=== PATIENT | female | born 1960 | race Caucasian/White ===

== ENCOUNTER 2021-06-08 11:31 | Day surgery (SDC) | payer BC ==
[~2021-06-08 11:31] MED LIST: Metoclopramide 10 MG/2 ML SDV IV PRN; Sodium Chloride 0.9% 1,000 ML IV SCH
[2021-06-08] MEDS ORDERED: Propofol 1,000 MG/100 ML SDV ONE (13:00)
--- NOTE | 2021-06-09 09:11 | OR ---
DATE OF OPERATION: 06/08/2021 SURGEON: Bassam Brady MD PREOPERATIVE DIAGNOSIS: Positive Cologuard test. POSTOPERATIVE DIAGNOSIS: Positive Cologuard test. PROCEDURE: Incomplete colonoscopy. ANESTHESIA: MAC. ESTIMATED BLOOD LOSS: None. COMPLICATIONS: None. INDICATION FOR THE PROCEDURE: The patient is a 60-year-old female, here today for colonoscopy. Last scope was 10 years ago, was normal per the patient. Denies any change in bowel habits. She did have a positive Cologuard test. She is here today for colonoscopy. DESCRIPTION OF PROCEDURE: Informed consent was obtained from the patient. The patient was taken to the operating room, placed on table in the left lateral decubitus position. Monitored anesthesia care was administered. Digital rectal exam was performed and was normal. Colonoscope was then advanced through the anus, did reach the sigmoid colon, unable to negotiate outside of the sigmoid due to a tortuous colon. The patient repositioned on her back, still unable to negotiate past the sigmoid. Scope was exchanged for a pediatric colonoscope with the same result, unable to negotiate through the sigmoid on her left lateral side, then repositioned to supine position, still unable to negotiate past due to a tortuous sigmoid colon. Colonoscope was then withdrawn. FINDINGS: Tortuous sigmoid colon. Incomplete colonoscopy. RECOMMENDATIONS: Would recommend CT colonography to further assess the remainder of her colon. JODY/GREG /[id number]
== END 2021-06-08 12:45 | disposition home or self-care (01) ==
LOC: LB.SDS 11:31
PROVIDERS: ATTEND Surgery
DX: R19.5 Other fecal abnormalities (principal); K63.89 Other specified diseases of intestine
CPT/HCPCS: 45330; J2704; J7030